=== PATIENT | male | born 1980 | race Hispanic/Latino ===

== ENCOUNTER 2018-11-26 01:59 | Emergency (ER) | payer SELFPAY ==
[2018-11-26] MEDS ORDERED: Ketorolac Tromethamine 60 MG/2 ML VIAL ONE (02:23)
== END 2018-11-26 02:59 | disposition home or self-care (01) ==
LOC: ERS 01:59
DX: M54.42 Lumbago with sciatica, left side (principal); Z79.899 Other long term (current) drug therapy
CPT/HCPCS: 96372; J1885